=== PATIENT | female | born 1945 | race Caucasian/White ===

== ENCOUNTER → 2023-09-29 11:50 | Outpatient (REF) | payer MEDICARE, OTHER, SELFPAY ==
[2023-09-29 12:43] LABS: Urine Albumin Trace (Neg - Trace); Urine Bilirubin Negative (Negative); Urine Character Clear (Clear); Urine Color Yellow; Urine Glucose Negative (Negative); Urine Ketone Negative (Negative); Urine Leukocyte 2+ (Negative); Urine Nitrite Positive (Negative); Urine Occult Blood Negative (Negative); Urine Urobilinogen Negative (Neg - 1+)
[2023-09-29 12:52] LABS: Urine Bacteria Few (Negative); Urine Red Blood Cell 0-2 /HPF (0-2); Urine Squamous Cell 0-2 /LPF (Few); Urine White Cell 26-30 /HPF (0-5)
[2023-09-29 13:11] LABS: Albumin 4.1 g/dl (3.5-5.0); Blood Urea Nitrogen 41 mg/dl (7-17); Calcium 9.5 mg/dl (8.4-10.2); Carbon Dioxide 28 mmol/L (22-30); Chloride 102 mmol/L (98-107); Glucose 96 mg/dl (70-99); Phosphorus 4.1 mg/dl (2.5-4.5); Potassium 4.5 mmol/L (3.5-5.1); Sodium 132 mmol/L (135-145)
== END ==
LOC: REG 11:50
PROVIDERS: ATTENDING PHYSICIAN Internal Medicine; FAMILY PHYSICIAN Family Medicine
DX: N18.32 Chronic kidney disease, stage 3b (principal); I10 Essential (primary) hypertension; R80.9 Proteinuria, unspecified
CPT/HCPCS: 36415; 80069; 81003; 81015

== ENCOUNTER → 2023-10-22 12:03 | Outpatient (REF) | payer MEDICARE, OTHER, SELFPAY ==
[2023-10-22 13:29] LABS: Osmolality Urine 447 mOsm/kg (300-900)
[2023-10-22 13:59] LABS: Urine Sodium 25 mmol/L (30-90)
[2023-10-22 14:33] LABS: Albumin 4.1 g/dl (3.5-5.0); Blood Urea Nitrogen 30 mg/dl (7-17); Calcium 9.4 mg/dl (8.4-10.2); Carbon Dioxide 28 mmol/L (22-30); Chloride 102 mmol/L (98-107); Glucose 85 mg/dl (70-99); Potassium 4.6 mmol/L (3.5-5.1); Sodium 134 mmol/L (135-145); eGFR 20.29
[2023-10-22 14:59] LABS: TSH 1.89 uIU/ml (0.47-4.68)
== END ==
LOC: REG 12:03
PROVIDERS: ATTENDING PHYSICIAN Internal Medicine
DX: D64.9 Anemia, unspecified (principal); I10 Essential (primary) hypertension; N17.9 Acute kidney failure, unspecified; R80.9 Proteinuria, unspecified
CPT/HCPCS: 36415; 80069; 83935; 84300; 84443

== ENCOUNTER → 2023-11-13 09:19 | Outpatient (REF) | payer MEDICARE, OTHER, SELFPAY ==
[2023-11-13 10:37] LABS: Albumin 4.2 g/dl (3.5-5.0); Blood Urea Nitrogen 37 mg/dl (7-17); Calcium 9.4 mg/dl (8.4-10.2); Carbon Dioxide 27 mmol/L (22-30); Chloride 100 mmol/L (98-107); Glucose 96 mg/dl (70-99); Phosphorus 4.4 mg/dl (2.5-4.5); Potassium 4.5 mmol/L (3.5-5.1); Sodium 134 mmol/L (135-145); eGFR 22.53
[2023-11-14 23:42] LABS: Myeloperoxidase Antibody 0 AU/mL (0-19); Serine Protease-3, IgG 0 AU/mL (0-19)
[2023-11-15 02:10] LABS: ANA, IgG Reflex to HEp-2 None Detected (None Detected)
[2023-11-16 01:34] LABS: Complement C3 90 mg/dl (88-165)
== END ==
LOC: REG 09:19
PROVIDERS: ATTENDING PHYSICIAN Internal Medicine; FAMILY PHYSICIAN Family Medicine
DX: D64.9 Anemia, unspecified (principal); I10 Essential (primary) hypertension; N17.9 Acute kidney failure, unspecified; R80.9 Proteinuria, unspecified
CPT/HCPCS: 36415; 80069; 83516; 86038; 86160

== ENCOUNTER 2023-11-28 08:31 | Emergency (ER) | payer MEDICARE, OTHER, SELFPAY ==
[2023-11-28] VITALS (8 sets, daily range): BP systolic 108–156; BP diastolic 55–126; BMI 17.5
--- NOTE | 2023-11-28 08:46 | ED.GENMED ---
History of Present Illness
General
Chief Complaint: Weakness
Time Seen by Provider: 11/28/23 08:33
Travel History
Have you had any contact with someone who has COVID-19?: No
Do you have any symptoms of coronavirus? Fever > 100 degrees, chills, cough, shortness of breath, sore throat, loss of taste or smell, muscle aches, or headache?: No
History of Present Illness
History of Present Illness:
Patient is a 77-year-old male with past medical history of endometrial cancer, lymphedema in the right lower extremity, osteoarthritis, GERD, depression, and history of CKD, who currently lives at home alone, here today for evaluation of generalized
weakness/fatigue over the past 2 months. She reports intermittent episodes with a worsening episode this morning when she woke up. She denies falls or injuries. No head trauma. She also endorses a mild headache, dysuria, increased urinary
frequency/urinary urgency, and a mild amount of diarrhea. No fevers. No cough or sore throat. No vomiting. No chest pain or difficulty breathing. No abdominal pain. Patient denies focal weakness. No alcohol or drug use. Patient contacted EMS
today secondary to her weakness.
Past History
Past History
ED Past Medical History: Cancer (Uterine CA), GERD, Psychiatric (Depression) and Other (Right lower extremity lymphedema, Restless leg syndrome. Hiatal hernia, Anemia, Degenerative scoliosis)
ED Past Surgical History: Gynecological (Hysterectomy for uterine CA 1999), Orthopedic (Right and left total hip replacement) and Other (Facelift)
Social History
Tobacco: Non-smoker
Alcohol: None
Drug: None
Personal: ( 2016 of [place]. She has large property with animals and feels it's 'too much.')
Living: alone
Employment: Retired
Review of Systems
Review of Systems
All Other Systems: ROS reviewed and negative except as documented in HPI and ROS
Phy Exam
Physical Exam
Physical Exam:
GENERAL: Alert , in no apparent distress
EYE: pupils equal and reactive
NECK: Supple, no significant adenopathy.
ENT: o/p clr, mmm.
CARDIAC: Regular rate and rhythm .
LUNGS: Clear breath sounds bilaterally, no acute respiratory distress, no wheezes/rales/rhonchi
ABDOMEN: Soft, without focal tenderness, no r/g, no cvat
NEUROLOGICAL: Alert and oriented, no focal neuro deficits, cranial nerves 2 through 12 intact, moving all extremities, normal sensation/motor, cerebellar function intact throughout
SKIN: Warm and dry, skin intact.
MUSCULOSKELETAL: Nontender edema to RLE consistent with history of lymphedema, well perfused.
PSYCH: Normal and appropriate interaction.
Course
Orders/Labs/Results
Orders:
Orders
11/28/23 08:54
Electrocardiogram (*1) Urgent
Reason for Study: Other
Other Reason for Exam: weakness
CT Head W/o Iv Contrast Urgent
Comment:
Reason For Exam: headache
EKG- Treatment ONCE
11/28/23 09:05
Complete Blood Count/With Diff Urgent
Comprehensive Metabolic Panel Urgent
Magnesium Urgent
Phosphorus Urgent
11/28/23 12:27
Urinalysis Reflex To Culture Urgent
Date Specimen was Collected: 11/28/23
Time Specimen was Collected: 08:59
Urine Microscopic Reflex Cult Urgent
Urine Culture Urgent
HUBERT Source: U
Specimen Description:
Date Specimen was Collected: 11/28/23
Time Specimen was Collected: 08:59
11/28/23 13:11
CefTRIAXone [Rocephin] 1,000 mg IV NOW STA
Abnormal Lab Results
11/28/23 11/28/23
09:05 12:27
WBC 13.8 H 10^3/uL
(4.8-10.8)
RBC 4.03 L 10^6/uL
(4.20-5.40)
Hgb 11.9 L g/dL
(12.0-16.0)
MCHC 31.8 L g/dL
(33.0-37.0)
Plt Count 449 H 10^3/uL
(130-400)
Abs Immat Gran (auto) 0.1 H 10^3/uL
(0-0.05)
Absolute Neuts (auto) 7.6 H 10^3/uL
(1.4-6.5)
Absolute Lymphs (auto) 5.0 H 10^3/uL
(1.2-3.4)
Absolute Monos (auto) 0.9 H 10^3/uL
(0.1-0.6)
Immature Gran % 0.6 H %
(0-0.5)
BUN 32 H mg/dl
(7-17)
Creatinine 2.1 H mg/dL
(0.6-1.0)
Glucose 157 H mg/dl
(70-99)
Urine Ketones Trace A
(Negative)
Ur Occult Blood Reflex 1+ A
(Negative)
Leukocyte Esterase Rfl 2+ A
(Negative)
Urine RBC 7-10 A /HPF
(0-2)
Urine WBC (Reflex) >100 A /HPF
(0-5)
Urine Bacteria (Reflex) Moderate A
(Negative)
11/28/23 09:05
11/28/23 09:05
Vital Signs
Initial and Last Documented VS:
Initial Vital Signs
Temp Pulse Resp BP Pulse Ox
97.9 F 74 15 108/64 95
11/28/23 08:36 11/28/23 08:36 11/28/23 08:36 11/28/23 08:36 11/28/23 08:36
Last Documented Vital Signs
Temp Pulse Resp BP Pulse Ox
97.9 F 66 16 134/69 100
11/28/23 08:36 11/28/23 11:30 11/28/23 11:30 11/28/23 11:00 11/28/23 11:30
MDM/Problems Addressed
Differential Diagnosis Includes:
Patient is a 77-year-old male with past medical history of endometrial cancer, lymphedema in the right lower extremity, osteoarthritis, GERD, depression, and history of CKD, who currently lives at home alone, here today for evaluation of generalized
weakness over the past 2 months with worsening symptoms this morning. Overall, patient appears well. She is neurologically intact without acute focal deficits appreciated. Will place on diagnostic cardiac sonographer. Will obtain EKG. Will obtain labs and
urinalysis. Will obtain CT brain given headache and weakness.
11/28/2023 11:14: Screening labs reveal a leukocytosis to 13.8. Hemoglobin 11.9. BUN 32/creatinine 2.1 which is grossly consistent with the patient's baseline. EKG nonischemic. There is evidence of marked sinus arrhythmia. Head CT reveals no
acute findings. There is moderate to severe diffuse leukoaraiosis. Pending urinalysis.
11/28/2023 13:01: Urinalysis concerning for infection. Patient reassessed. She reports improvement of symptoms overall. She is able to ambulate appropriately. She appears steady on her feet and does not exhibit signs of weakness. We will treat
patient for a complicated urinary tract infection (given fatigue) with ceftriaxone 1 gram IV followed by PO cefpodoxime 200 mg bid x 7 days. Discussed treatment options with patient including observation in the hospital versus discharge. Shared
decision-making was used. Patient would prefer to be discharged and does not want to be admitted. She feels safe and steady on her feet. She is recommended to follow-up closely with her doctor. We will send antibiotics to the pharmacy. Return
precautions given for worsening symptoms. All questions answered. Stable for discharge
*Critical Care Note
Total Time (30-74mins, 75-104mins- exclusive of procedures): Not Applicable
ED Attending Note
-
Portions of this chart may have been created with voice recognition software.� Occasional wrong word or��sound alike� substitutions may have occurred due to the inherent limitations of voice recognition software.
Discharge Plan
Departure
Patient Disposition: Home (Routine Discharge)
Date of Disposition: 11/28/23
Time of Disposition: 13:04
Patient with high blood pressure during this ER visit?: No
Condition: Good
Covid-19: Not Applicable
Discharge Problem:
Acute lower urinary tract infection, Fatigue
Instructions: Generalized Weakness (DC), Urinary Tract Infection, Adult ED
Prescriptions:
New
cefpodoxime 200 mg tablet
200 mg PO Q12H 10 Days Qty: 20 0RF
No Action
venlafaxine [Effexor XR] 150 MG capsule,extended release 24hr
300 mg PO DAILY
metoprolol succinate 25 mg tablet extended release 24 hr
25 mg PO DAILY
cholecalciferol (vitamin D3) 25 mcg (1,000 unit) Tablet
1,000 unit PO DAILY
Neuriva Original 50-50 mg Tablet,Chewable
1 cap PO DAILY
cefdinir 300 mg capsule
300 mg PO BID Qty: 6 0RF
Rx Instructions:
starting 07/05
Referrals:
Josesito Darden MD [Family Provider] -
Activity Restrictions/Additional Instructions:
You were seen today for evaluation.
Your workup reveals an elevated white blood cell count of 13.8 and mild anemia with a hemoglobin of 11.9.
Your creatinine (kidney function level) is elevated but consistent with your baseline.
Your urine appears infected.
We are starting you on antibiotics with a medication called cefpodoxime to take as directed.
Rest. Drink plenty of fluids. Follow-up closely with your family doctor.
Return for any new, worsening, or concerning symptoms
Interventions
Interventions:
*Risk Screen - Suicide Last Done: 11/28/23 08:36
*General Assessment Last Done: 11/28/23 08:36
*Neglect/Abuse Screening Last Done: 11/28/23 08:36
*ED COVID-19 Vaccine History Last Done: 11/28/23 08:36
ED- Cardiac Assessment Last Done: 11/28/23 08:36
ED- Neurological Assessment Last Done: 11/28/23 08:36
ED- Pulmonary Assessment Last Done: 11/28/23 08:36
Discharge Date and Time
Print Language: ECUADOREAN
[2023-11-28 09:13] LABS: % Basophils 0.8 % (0-2); % Eosinophils 1.1 % (0-6); % Immature Granulocytes 0.6 % (0-0.5); % Lymphocytes 36.4 % (20.5-51.1); % Monocytes 6.2 % (1.7-9.3); % Neutrophils 54.9 % (42.2-75.2); Absolute Basophils 0.1 10^3/uL (0-0.2); Absolute Eosinophils 0.2 10^3/uL (0-0.7); Absolute Immature Granulocytes 0.1 10^3/uL (0-0.05); Absolute Monocytes 0.9 10^3/uL (0.1-0.6); Absolute Neutrophils 7.6 10^3/uL (1.4-6.5); Hematocrit 37.4 % (37.0-47.0); Hemoglobin 11.9 g/dL (12.0-16.0); Mean Corp Hgb Conc. 31.8 g/dL (33.0-37.0); Mean Corpuscular Hgb 29.5 pg (27.0-31.0); Mean Corpuscular Volume 92.8 fL (81.0-99.0); Nucleated Red Blood Cells % 0 %; Platelet Count 449 10^3/uL (130-400); Red Blood Cell Count 4.03 10^6/uL (4.20-5.40); Red Cell Dist. Width 13.2 % (11.5-14.5); White Blood Cell Count 13.8 10^3/uL (4.8-10.8)
[2023-11-28 09:29] LABS: ALT (SGPT) 16 U/L (0-35); AST (SGOT) 30 U/L (14-36); Albumin 4.2 g/dl (3.5-5.0); Alkaline Phosphatase 93 U/L (38-126); Blood Urea Nitrogen 32 mg/dl (7-17); Calcium 9.9 mg/dl (8.4-10.2); Carbon Dioxide 26 mmol/L (22-30); Chloride 106 mmol/L (98-107); Estimated Creatinine Clearance 16 ml/min; Glucose 157 mg/dl (70-99); Magnesium 2.1 mg/dl (1.6-2.3); Phosphorus 4.3 mg/dl (2.5-4.5); Potassium 4.3 mmol/L (3.5-5.1); Sodium 139 mmol/L (135-145); Total Bilirubin 0.6 mg/dl (0.2-1.3); eGFR 23.82
[2023-11-28 12:38] LABS: Urine Albumin Trace (Neg - Trace); Urine Bilirubin Negative (Negative); Urine Character Slightly Cloudy (Clear); Urine Color Yellow; Urine Glucose Negative (Negative); Urine Ketone Trace (Negative); Urine Leukocyte 2+ (Negative); Urine Nitrite Negative (Negative); Urine Occult Blood 1+ (Negative); Urine Urobilinogen Negative (Neg - 1+)
[2023-11-28 13:02] LABS: Urine Squamous Cell 0-2 /LPF (Few)
[2023-11-28 13:03] LABS: Urine Bacteria Moderate (Negative); Urine White Cell >100 /HPF (0-5)
[2023-11-28] MEDS: ROCEPHIN 1000 MG IV (13:19)
== END 2023-11-28 13:49 | disposition home or self-care (01) ==
LOC: EMR 08:31
PROVIDERS: Physician Assistant; EMERGENCY PHYSICIAN Emergency Medicine; FAMILY PHYSICIAN Family Medicine
DX: N39.0 Urinary tract infection, site not specified (principal); R53.83 Other fatigue; R53.1 Weakness; R51.9 Headache, unspecified; M19.90 Unspecified osteoarthritis, unspecified site; K21.9 Gastro-esophageal reflux disease without esophagitis; F32.A Depression, unspecified; N18.9 Chronic kidney disease, unspecified; G25.81 Restless legs syndrome; K44.9 Diaphragmatic hernia without obstruction or gangrene; M41.50 Other secondary scoliosis, site unspecified; Z85.42 Personal history of malignant neoplasm of other parts of uterus; Z96.642 Presence of left artificial hip joint
CPT/HCPCS: 99284; 96374; 70450; 80053; 81003; 81015; 83735; 84100; 85025; 87077; 87086; 87186; 93005

== ENCOUNTER → 2023-12-14 14:34 | Outpatient (REF) | payer MEDICARE, OTHER, SELFPAY ==
[2023-12-14 17:24] LABS: Hematocrit 32.2 % (37.0-47.0); Hemoglobin 10.4 g/dL (12.0-16.0); Mean Corp Hgb Conc. 32.3 g/dL (33.0-37.0); Mean Corpuscular Hgb 29.5 pg (27.0-31.0); Mean Corpuscular Volume 91.2 fL (81.0-99.0); Mean Platelet Volume 11.4 fL (7.4-10.4); Platelet Count 394 10^3/uL (130-400); Red Blood Cell Count 3.53 10^6/uL (4.20-5.40); Red Cell Dist. Width 13.5 % (11.5-14.5)
[2023-12-14 17:39] LABS: Albumin 4.1 g/dl (3.5-5.0); Blood Urea Nitrogen 40 mg/dl (7-17); Calcium 9.1 mg/dl (8.4-10.2); Carbon Dioxide 25 mmol/L (22-30); Chloride 106 mmol/L (98-107); Glucose 78 mg/dl (70-99); Phosphorus 3.9 mg/dl (2.5-4.5); Potassium 4.7 mmol/L (3.5-5.1); Sodium 136 mmol/L (135-145); eGFR 26.86
== END ==
LOC: REG 14:34
PROVIDERS: ATTENDING PHYSICIAN Internal Medicine; FAMILY PHYSICIAN Family Medicine
DX: N17.9 Acute kidney failure, unspecified (principal)
CPT/HCPCS: 36415; 80069; 85027

== ENCOUNTER → 2023-12-24 12:48 | Outpatient (REF) | payer MEDICARE, OTHER, SELFPAY ==
[2023-12-24 13:59] LABS: Glycohemoglobin (HgbA1c) 6.1 % (4.0-5.6)
[2023-12-24 14:14] LABS: HDL Cholesterol 94 mg/dl; LDL Cholesterol, Calculated 91 mg/dl; Total Cholesterol 206 mg/dl (50-199); Triglyceride 108 mg/dl (10-149); Very Low Density Lipoprotein 21 mg/dl (0-30)
[2023-12-24 14:57] LABS: Urine Albumin Trace (Neg - Trace); Urine Bilirubin Negative (Negative); Urine Character Clear (Clear); Urine Color Yellow; Urine Glucose Negative (Negative); Urine Ketone Negative (Negative); Urine Leukocyte Trace (Negative); Urine Nitrite Negative (Negative); Urine Occult Blood Negative (Negative); Urine Specific Gravity 1.015 (<1.030); Urine Urobilinogen Negative (Neg - 1+)
[2023-12-24 15:24] LABS: Urine Squamous Cell 0-2 /LPF (Few)
[2023-12-24 15:25] LABS: Urine Red Blood Cell 0-2 /HPF (0-2)
== END ==
LOC: REG 12:48
PROVIDERS: ATTENDING PHYSICIAN Internal Medicine; FAMILY PHYSICIAN Family Medicine
DX: R73.03 Prediabetes (principal); E78.2 Mixed hyperlipidemia; Z87.440 Personal history of urinary (tract) infections; R80.9 Proteinuria, unspecified
CPT/HCPCS: 36415; 80061; 81003; 81015; 83036; 87086

== ENCOUNTER → 2023-12-28 11:26 | Outpatient (REF) | payer MEDICARE, OTHER, SELFPAY | LOC: HWRAD 11:26 | PROVIDERS: ATTENDING PHYSICIAN Internal Medicine; FAMILY PHYSICIAN Family Medicine | DX: D64.9 Anemia, unspecified (principal); I10 Essential (primary) hypertension; N17.9 Acute kidney failure, unspecified; R80.9 Proteinuria, unspecified | CPT/HCPCS: 76770 ==

== ENCOUNTER → 2024-02-23 08:46 | Outpatient (REF) | payer MEDICARE, OTHER, SELFPAY | LOC: RAD 08:46 | PROVIDERS: ATTENDING PHYSICIAN Internal Medicine; FAMILY PHYSICIAN Family Medicine | DX: N17.9 Acute kidney failure, unspecified (principal) | CPT/HCPCS: 93975 ==

== ENCOUNTER → 2024-03-05 10:02 | Outpatient (REF) | payer MEDICARE, OTHER, SELFPAY ==
[2024-03-05 10:57] LABS: Urine Protein 18 mg/dl (0-12)
[2024-03-05 11:02] LABS: % Basophils 0.5 % (0-2); % Eosinophils 0.8 % (0-6); % Immature Granulocytes 0.6 % (0-0.5); % Lymphocytes 29.7 % (20.5-51.1); % Monocytes 6.8 % (1.7-9.3); % Neutrophils 61.6 % (42.2-75.2); Absolute Eosinophils 0.1 10^3/uL (0-0.7); Absolute Immature Granulocytes 0.1 10^3/uL (0-0.05); Absolute Lymphocytes 2.5 10^3/uL (1.2-3.4); Absolute Monocytes 0.6 10^3/uL (0.1-0.6); Absolute Neutrophils 5.2 10^3/uL (1.4-6.5); Hematocrit 33.7 % (37.0-47.0); Mean Corp Hgb Conc. 32.6 g/dL (33.0-37.0); Mean Corpuscular Hgb 30.4 pg (27.0-31.0); Mean Corpuscular Volume 93.1 fL (81.0-99.0); Mean Platelet Volume 10.4 fL (7.4-10.4); Nucleated Red Blood Cells % 0 %; Platelet Count 365 10^3/uL (130-400); Red Blood Cell Count 3.62 10^6/uL (4.20-5.40); Red Cell Dist. Width 12.9 % (11.5-14.5); Reticulocyte Count 1.1 % (0.4-2.8); White Blood Cell Count 8.5 10^3/uL (4.8-10.8)
[2024-03-05 11:14] LABS: Albumin 4.4 g/dl (3.5-5.0); Blood Urea Nitrogen 39 mg/dl (7-17); Calcium 9.7 mg/dl (8.4-10.2); Carbon Dioxide 27 mmol/L (22-30); Chloride 100 mmol/L (98-107); Glucose 92 mg/dl (70-99); Iron 55 ug/dl (37-170); Phosphorus 3.5 mg/dl (2.5-4.5); Potassium 4.1 mmol/L (3.5-5.1); Sodium 137 mmol/L (135-145); eGFR 23.67
[2024-03-05 11:23] LABS: Percent Saturation 16 % (20-50); Total Iron Binding Capacity 334 ug/dl (265-497)
[2024-03-05 11:28] LABS: Intact PTH 158.1 pg/ml (13.6-85.8)
[2024-03-05 11:30] LABS: Vitamin D, 25-OH*** 49.7 ng/mL (30-80)
[2024-03-05 11:47] LABS: Ferritin 39.7 ng/ml (11.1-264.0)
[2024-03-05 12:19] LABS: Folate > 20.0 ng/ml (2.76-20); Vitamin B12 363 pg/ml (239-931)
== END ==
LOC: REG 10:02
PROVIDERS: ATTENDING PHYSICIAN Internal Medicine; FAMILY PHYSICIAN Family Medicine
DX: N17.9 Acute kidney failure, unspecified (principal); N25.81 Secondary hyperparathyroidism of renal origin; D64.9 Anemia, unspecified
CPT/HCPCS: 36415; 80069; 82306; 82570; 82607; 82728; 82746; 83540; 83550; 83970; 84156; 85025; 85045

== ENCOUNTER → 2024-08-15 11:58 | Outpatient (REF) | payer MEDICARE, OTHER, SELFPAY ==
[2024-08-15 12:59] LABS: % Basophils 0.8 % (0-2); % Eosinophils 1.1 % (0-6); % Immature Granulocytes 0.4 % (0-0.5); % Lymphocytes 32.3 % (20.5-51.1); % Monocytes 6.9 % (1.7-9.3); % Neutrophils 58.5 % (42.2-75.2); Absolute Basophils 0.1 10^3/uL (0-0.2); Absolute Eosinophils 0.1 10^3/uL (0-0.7); Absolute Lymphocytes 2.5 10^3/uL (1.2-3.4); Absolute Monocytes 0.5 10^3/uL (0.1-0.6); Absolute Neutrophils 4.6 10^3/uL (1.4-6.5); Hematocrit 34.9 % (37.0-47.0); Hemoglobin 11.2 g/dL (12.0-16.0); Mean Corp Hgb Conc. 32.1 g/dL (33.0-37.0); Mean Corpuscular Hgb 30.1 pg (27.0-31.0); Mean Corpuscular Volume 93.8 fL (81.0-99.0); Mean Platelet Volume 10.4 fL (7.4-10.4); Nucleated Red Blood Cells % 0 %; Platelet Count 398 10^3/uL (130-400); Red Blood Cell Count 3.72 10^6/uL (4.20-5.40); Red Cell Dist. Width 13.2 % (11.5-14.5); Reticulocyte Count 1.5 % (0.4-2.8); White Blood Cell Count 7.8 10^3/uL (4.8-10.8)
[2024-08-15 13:26] LABS: Albumin 4.3 g/dl (3.5-5.0); Blood Urea Nitrogen 31 mg/dl (7-17); Calcium 9.9 mg/dl (8.4-10.2); Carbon Dioxide 30 mmol/L (22-30); Chloride 100 mmol/L (98-107); Glucose 107 mg/dl (70-99); Iron 96 ug/dl (37-170); Potassium 4.9 mmol/L (3.5-5.1); Sodium 137 mmol/L (135-145); eGFR 26.69
[2024-08-15 13:29] LABS: Urine Albumin Trace (Neg - Trace); Urine Bilirubin Negative (Negative); Urine Glucose Negative (Negative); Urine Ketone Negative (Negative); Urine Leukocyte 1+ (Negative); Urine Nitrite Negative (Negative); Urine Occult Blood Negative (Negative); Urine Urobilinogen Negative (Neg - 1+)
[2024-08-15 13:30] LABS: Urine Character Clear (Clear); Urine Color Yellow
[2024-08-15 13:36] LABS: Percent Saturation 30 % (20-50); Total Iron Binding Capacity 312 ug/dl (265-497)
[2024-08-15 13:38] LABS: Urine Protein 24 mg/dl (0-12)
[2024-08-15 13:41] LABS: Vitamin D, 25-OH*** 53.1 ng/mL (30-80)
[2024-08-15 13:59] LABS: Ferritin 50.9 ng/ml (11.1-264.0)
[2024-08-15 14:24] LABS: Urine Bacteria Few (Negative); Urine Red Blood Cell 0-2 /HPF (0-2); Urine Squamous Cell 0-2 /LPF (Few); Urine White Cell 26-30 /HPF (0-5)
[2024-08-15 14:31] LABS: Folate 17.6 ng/ml (2.76-20); Vitamin B12 > 1000 pg/ml (239-931)
== END ==
LOC: REG 11:58
PROVIDERS: ATTENDING PHYSICIAN Internal Medicine; FAMILY PHYSICIAN Nurse Practitioner
DX: N17.9 Acute kidney failure, unspecified (principal); N25.81 Secondary hyperparathyroidism of renal origin; D64.9 Anemia, unspecified; Z87.440 Personal history of urinary (tract) infections; N39.0 Urinary tract infection, site not specified; Z79.899 Other long term (current) drug therapy
CPT/HCPCS: 36415; 80069; 81003; 81015; 82306; 82570; 82607; 82728; 82746; 83540; 83550; 83970; 84156; 85025; 85045; 87077; 87086; 87186

== ENCOUNTER 2024-08-25 13:46 | Emergency (ER) | payer MEDICARE, OTHER, SELFPAY ==
[2024-08-25 14:06] VITALS: BP 125/78
[2024-08-25 14:32] LABS: % Basophils 0.4 % (0-2); % Eosinophils 0.4 % (0-6); % Immature Granulocytes 0.8 % (0-0.5); % Lymphocytes 20.4 % (20.5-51.1); % Monocytes 6.2 % (1.7-9.3); % Neutrophils 71.8 % (42.2-75.2); Absolute Immature Granulocytes 0.1 10^3/uL (0-0.05); Absolute Lymphocytes 1.5 10^3/uL (1.2-3.4); Absolute Monocytes 0.5 10^3/uL (0.1-0.6); Absolute Neutrophils 5.2 10^3/uL (1.4-6.5); Hematocrit 34.8 % (37.0-47.0); Hemoglobin 11.2 g/dL (12.0-16.0); Mean Corp Hgb Conc. 32.2 g/dL (33.0-37.0); Mean Corpuscular Hgb 29.6 pg (27.0-31.0); Mean Corpuscular Volume 92.1 fL (81.0-99.0); Mean Platelet Volume 9.4 fL (7.4-10.4); Nucleated Red Blood Cells % 0 %; Platelet Count 389 10^3/uL (130-400); Red Blood Cell Count 3.78 10^6/uL (4.20-5.40); White Blood Cell Count 7.2 10^3/uL (4.8-10.8)
[2024-08-25 14:54] LABS: ALT (SGPT) 16 U/L (0-35); AST (SGOT) 31 U/L (14-36); Albumin 4.4 g/dl (3.5-5.0); Alkaline Phosphatase 92 U/L (38-126); Blood Urea Nitrogen 41 mg/dl (7-17); Calcium 9.7 mg/dl (8.4-10.2); Carbon Dioxide 24 mmol/L (22-30); Chloride 99 mmol/L (98-107); Glucose 121 mg/dl (70-99); Potassium 4.9 mmol/L (3.5-5.1); Sodium 134 mmol/L (135-145); Total Bilirubin 0.5 mg/dl (0.2-1.3); eGFR 22.39
[2024-08-25 17:03] VITALS: BP 159/66
--- NOTE | 2024-08-25 17:11 | ED.GENMED ---
History of Present Illness
General
Chief Complaint: Weakness
Source: patient
Exam Limitations: none
Time Seen by Provider: 08/25/24 17:00
History of Present Illness
History of Present Illness:
See MDM
Past History
Past History
ED Past Medical History: Cancer (Uterine CA), GERD, Psychiatric (Depression) and Other (Right lower extremity lymphedema, Restless leg syndrome. Hiatal hernia, Anemia, Degenerative scoliosis)
ED Past Surgical History: Gynecological (Hysterectomy for uterine CA 1999), Orthopedic (Right and left total hip replacement) and Other (Facelift)
Social History
Tobacco: Non-smoker
Alcohol: None
Drug: None
Personal: ( 2016 of [place]. She has large property with animals and feels it's 'too much.')
Living: alone
Employment: Retired
Phy Exam
Physical Exam
Physical Exam:
See MDM
Course
Orders/Labs/Results
Orders:
Orders
08/25/24 14:07
Electrocardiogram (*1) Urgent
Reason for Study: Fatigue / Weakness
EKG- Treatment ONCE
08/25/24 14:16
Complete Blood Count/With Diff Urgent
Comprehensive Metabolic Panel Urgent
08/25/24 17:10
CT Head W/o Iv Contrast Urgent
Comment:
Reason For Exam: dizzy, headache, off balance
0.9% Sodium Chloride 1000 ml [Nss] 1,000 ml IV BOLUS
Abnormal Lab Results
08/25/24
14:16
RBC 3.78 L 10^6/uL
(4.20-5.40)
Hgb 11.2 L g/dL
(12.0-16.0)
Hct 34.8 L %
(37.0-47.0)
MCHC 32.2 L g/dL
(33.0-37.0)
Abs Immat Gran (auto) 0.1 H 10^3/uL
(0-0.05)
Immature Gran % 0.8 H %
(0-0.5)
Lymphocytes % 20.4 L %
(20.5-51.1)
Sodium 134 L mmol/L
(135-145)
BUN 41 H mg/dl
(7-17)
Creatinine 2.2 H mg/dL
(0.6-1.0)
Glucose 121 H mg/dl
(70-99)
08/25/24 14:16
08/25/24 14:16
Vital Signs
Initial and Last Documented VS:
Initial Vital Signs
Temp Pulse Resp BP Pulse Ox
98.0 F 87 16 125/78 98
08/25/24 14:06 08/25/24 14:06 08/25/24 14:06 08/25/24 14:06 08/25/24 14:06
Last Documented Vital Signs
Temp Pulse Resp BP Pulse Ox
97.6 F 75 16 162/76 100
08/25/24 17:03 08/25/24 19:00 08/25/24 19:00 08/25/24 17:21 08/25/24 19:00
MDM/Problems Addressed
Differential Diagnosis Includes:
HPI and MDM Narrative:
78-year-old female presenting for dizziness and fatigue. She states this has been ongoing for the past 3 days. She states she feels off balance and then she develops shortness of breath when she walks. She believes this could be related to her
recent medication change where her metoprolol was switched to losartan by her new PCP
Patient denies vertiginous symptoms. She does appear dry but believes she is drinking enough water. Blood work was done prior to my assessment and her BUN and creatinine are elevated from baseline. Will give IV fluids and reassess.
She has normal finger-nose bilaterally and negative Romberg sign and negative [place]-Hallpike.
I had the patient ambulate in the room and no symptoms were reproduced. Patient does acknowledge that she is feeling somewhat better
Physical exam
General: Well appearing and non-toxic
HEENT: protecting airway. Dry mucous membranes. EOMI.
Neck: supple
CV: No evidence of cyanosis. Regular rate and rhythm
Resp: No accessory muscle use
Abd: Non-distended
Extremities: No deformities
Neuro: alert. Normal finger-nose. Negative [place]-Hallpike. Negative Romberg sign
Psych: Normal affect
Skin: Intact
Problems Addressed including Acute and Chronic Conditions affecting care:
1. Dizziness
Acuity: acute
Prognosis: stable
Details: Potentially in the setting of orthostasis. Will give IV fluids and reassess. Given her multiple complaints, will obtain CT head
Updates
CT head negative. On reassessment, patient feeling much better. She is ambulating difficulty and feels comfortable going home
Differential Diagnosis (but not limited to): Adverse medication reaction, dehydration, orthostasis
Testing considered: Troponin but exertional symptoms not reproducible at bedside
Drug therapy (if applicable): OTC meds, please see d/c instruction regarding Rx drugs
Amount and/or Complexity of Data Reviewed
Clinical info obtained from: Patient
External data reviewed: N/A
Labs I independently reviewed (but not limited to): Elevated BUN and creatinine
Radiology: The CT scan was personally and independently reviewed. In addition, official CT report reviewed.
Pulse Ox: not hypoxic
EKG independently reviewed: Sinus rhythm, normal axis, no STEMI
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
Critical Care: N/A
Risk of Complication:
Social Determinants of health: Good social support
Discussed with other providers: N/A
Escalation of Care includes Admit/Obs: After being observed in the Emergency Department, pt stable for discharge.
Occasional wrong word or 'sound a like' substitutions may have occurred due to the inherent limitations of voice recognition software. Read the chart carefully and recognize, using context, where substitutions have occurred.
*Critical Care Note
Total Time (30-74mins, 75-104mins- exclusive of procedures): Not Applicable
ED Attending Note
-
Portions of this chart may have been created with voice recognition software.� Occasional wrong word or��sound alike� substitutions may have occurred due to the inherent limitations of voice recognition software.
Discharge Plan
Departure
Patient Disposition: Home (Routine Discharge)
Date of Disposition: 08/25/24
Time of Disposition: 21:09
Patient with high blood pressure during this ER visit?: No
Discharge Problem:
Orthostasis
Instructions: Dehydration in adults - ED discharge instructions
Prescriptions:
No Action
venlafaxine [Effexor XR] 150 MG capsule,extended release 24hr
300 mg PO DAILY
metoprolol succinate 25 mg tablet extended release 24 hr
25 mg PO DAILY
cholecalciferol (vitamin D3) 25 mcg (1,000 unit) Tablet
1,000 unit PO DAILY
Neuriva Original 50-50 mg Tablet,Chewable
1 cap PO DAILY
cefdinir 300 mg capsule
300 mg PO BID Qty: 6 0RF
Rx Instructions:
starting 07/05
cefpodoxime 200 mg tablet
200 mg PO Q12H 10 Days Qty: 20 0RF
Referrals:
Marie Cervantes CRNP [Family Provider] -
Activity Restrictions/Additional Instructions:
Please return for any worsening symptoms.
You may return at any time if you have further concerns.
Please follow up with your doctor at the first available appointment, preferably this week.
Thank you for choosing [facility].
Interventions
Interventions:
*Risk Screen - Suicide Last Done: 08/25/24 14:06
*General Assessment Last Done: 08/25/24 18:29
*Neglect/Abuse Screening Last Done: 08/25/24 14:06
ED- Fall Risk Assessment Last Done: 08/25/24 18:01
*ED COVID-19 Vaccine History Last Done: 08/25/24 18:29
ED- Cardiac Assessment Last Done: 08/25/24 18:01
ED- Neurological Assessment Last Done: 08/25/24 18:01
ED- Pulmonary Assessment Last Done: 08/25/24 18:01
Discharge Date and Time
Print Language: OCCITAN
[2024-08-25 17:21] VITALS: BP 162/76
[2024-08-25] MEDS: NSS 1000 IV (17:34)
== END 2024-08-25 21:34 | disposition home or self-care (01) ==
LOC: EMR 13:46
PROVIDERS: Emergency Medicine; EMERGENCY PHYSICIAN Student in an Organized Health Care Education/Training Program; FAMILY PHYSICIAN Nurse Practitioner
DX: R53.1 Weakness (principal); K21.9 Gastro-esophageal reflux disease without esophagitis; F32.A Depression, unspecified; G25.81 Restless legs syndrome; K44.9 Diaphragmatic hernia without obstruction or gangrene; Z85.42 Personal history of malignant neoplasm of other parts of uterus; Z90.710 Acquired absence of both cervix and uterus
CPT/HCPCS: 99284; 96360; 96361; 70450; 80053; 85025; 93005

== ENCOUNTER → 2024-12-23 09:39 | Outpatient (REF) | payer MEDICARE, OTHER, SELFPAY ==
[2024-12-23 10:42] LABS: % Basophils 0.7 % (0-2); % Eosinophils 1.5 % (0-6); % Immature Granulocytes 0.3 % (0-0.5); % Lymphocytes 33.9 % (20.5-51.1); % Monocytes 7.2 % (1.7-9.3); % Neutrophils 56.4 % (42.2-75.2); Absolute Basophils 0.1 10^3/uL (0-0.2); Absolute Eosinophils 0.1 10^3/uL (0-0.7); Absolute Lymphocytes 2.4 10^3/uL (1.2-3.4); Absolute Monocytes 0.5 10^3/uL (0.1-0.6); Hematocrit 30.7 % (37.0-47.0); Mean Corp Hgb Conc. 32.6 g/dL (33.0-37.0); Mean Corpuscular Hgb 30.1 pg (27.0-31.0); Mean Corpuscular Volume 92.5 fL (81.0-99.0); Mean Platelet Volume 10.6 fL (7.4-10.4); Nucleated Red Blood Cells % 0 %; Platelet Count 380 10^3/uL (130-400); Red Blood Cell Count 3.32 10^6/uL (4.20-5.40); Red Cell Dist. Width 13.3 % (11.5-14.5); White Blood Cell Count 7.1 10^3/uL (4.8-10.8)
[2024-12-23 16:28] LABS: ALT (SGPT) 22 U/L (0-35); AST (SGOT) 31 U/L (14-36); Albumin 4.4 g/dl (3.5-5.0); Alkaline Phosphatase 88 U/L (38-126); Blood Urea Nitrogen 57 mg/dl (7-17); Calcium 9.5 mg/dl (8.4-10.2); Carbon Dioxide 23 mmol/L (22-30); Chloride 105 mmol/L (98-107); Glucose 100 mg/dl (70-99); Iron 99 ug/dl (37-170); Potassium 5.7 mmol/L (3.5-5.1); Sodium 140 mmol/L (135-145); Total Bilirubin 0.5 mg/dl (0.2-1.3); Total Protein 6.7 g/dl (6.3-8.2); eGFR 26.53
[2024-12-23 17:32] LABS: Ferritin 54.7 ng/ml (11.1-264.0)
== END ==
LOC: REG 09:39
PROVIDERS: ATTENDING PHYSICIAN Nurse Practitioner
DX: I10 Essential (primary) hypertension (principal); N18.30 Chronic kidney disease, stage 3 unspecified; D64.9 Anemia, unspecified; R80.9 Proteinuria, unspecified
CPT/HCPCS: 36415; 80053; 82728; 83540; 85025

== ENCOUNTER → 2024-12-28 15:09 | Outpatient (REF) | payer MEDICARE, OTHER, SELFPAY ==
[2024-12-28 15:36] LABS: % Basophils 0.6 % (0-2); % Eosinophils 2.1 % (0-6); % Immature Granulocytes 0.4 % (0-0.5); % Lymphocytes 33.4 % (20.5-51.1); % Monocytes 9.2 % (1.7-9.3); % Neutrophils 54.3 % (42.2-75.2); Absolute Eosinophils 0.1 10^3/uL (0-0.7); Absolute Lymphocytes 2.2 10^3/uL (1.2-3.4); Absolute Monocytes 0.6 10^3/uL (0.1-0.6); Absolute Neutrophils 3.6 10^3/uL (1.4-6.5); Hematocrit 29.5 % (37.0-47.0); Hemoglobin 9.7 g/dL (12.0-16.0); Mean Corp Hgb Conc. 32.9 g/dL (33.0-37.0); Mean Corpuscular Hgb 30.5 pg (27.0-31.0); Mean Corpuscular Volume 92.8 fL (81.0-99.0); Mean Platelet Volume 10.2 fL (7.4-10.4); Nucleated Red Blood Cells % 0 %; Platelet Count 365 10^3/uL (130-400); Red Blood Cell Count 3.18 10^6/uL (4.20-5.40); Red Cell Dist. Width 13.2 % (11.5-14.5); White Blood Cell Count 6.7 10^3/uL (4.8-10.8)
[2024-12-28 15:48] LABS: ALT (SGPT) 20 U/L (0-35); AST (SGOT) 28 U/L (14-36); Albumin 3.9 g/dl (3.5-5.0); Alkaline Phosphatase 78 U/L (38-126); Blood Urea Nitrogen 55 mg/dl (7-17); Calcium 9.5 mg/dl (8.4-10.2); Carbon Dioxide 26 mmol/L (22-30); Chloride 106 mmol/L (98-107); Glucose 92 mg/dl (70-99); Potassium 5.4 mmol/L (3.5-5.1); Sodium 139 mmol/L (135-145); Total Bilirubin 0.4 mg/dl (0.2-1.3); Total Protein 6.5 g/dl (6.3-8.2); eGFR 26.53
== END ==
LOC: REG 15:09
PROVIDERS: ATTENDING PHYSICIAN Nurse Practitioner
DX: D64.9 Anemia, unspecified (principal); E87.1 Hypo-osmolality and hyponatremia
CPT/HCPCS: 36415; 80053; 85025

== ENCOUNTER → 2025-02-01 14:44 | Outpatient (REF) | payer MEDICARE, OTHER, SELFPAY ==
[2025-02-01 16:19] LABS: % Basophils 0.7 % (0-2); % Eosinophils 0.7 % (0-6); % Immature Granulocytes 0.4 % (0-0.5); % Lymphocytes 27.6 % (20.5-51.1); % Monocytes 6.9 % (1.7-9.3); % Neutrophils 63.7 % (42.2-75.2); Absolute Basophils 0.1 10^3/uL (0-0.2); Absolute Eosinophils 0.1 10^3/uL (0-0.7); Absolute Lymphocytes 2.3 10^3/uL (1.2-3.4); Absolute Monocytes 0.6 10^3/uL (0.1-0.6); Absolute Neutrophils 5.2 10^3/uL (1.4-6.5); Hematocrit 32.5 % (37.0-47.0); Hemoglobin 10.3 g/dL (12.0-16.0); Mean Corp Hgb Conc. 31.7 g/dL (33.0-37.0); Mean Corpuscular Hgb 29.7 pg (27.0-31.0); Mean Corpuscular Volume 93.7 fL (81.0-99.0); Mean Platelet Volume 10.7 fL (7.4-10.4); Nucleated Red Blood Cells % 0 %; Platelet Count 443 10^3/uL (130-400); Red Blood Cell Count 3.47 10^6/uL (4.20-5.40); Red Cell Dist. Width 13.3 % (11.5-14.5); White Blood Cell Count 8.2 10^3/uL (4.8-10.8)
[2025-02-01 16:43] LABS: ALT (SGPT) 55 U/L (0-35); AST (SGOT) 39 U/L (14-36); Albumin 4.2 g/dl (3.5-5.0); Alkaline Phosphatase 130 U/L (38-126); Blood Urea Nitrogen 43 mg/dl (7-17); Calcium 10.1 mg/dl (8.4-10.2); Carbon Dioxide 24 mmol/L (22-30); Chloride 108 mmol/L (98-107); Glucose 98 mg/dl (70-99); Iron 87 ug/dl (37-170); Potassium 5.7 mmol/L (3.5-5.1); Sodium 140 mmol/L (135-145); Total Bilirubin 0.6 mg/dl (0.2-1.3); eGFR 26.53
[2025-02-01 16:53] LABS: Percent Saturation 28 % (20-50); Total Iron Binding Capacity 309 ug/dl (265-497)
[2025-02-01 17:17] LABS: Ferritin 68.2 ng/ml (11.1-264.0)
== END ==
LOC: REG 14:44
PROVIDERS: ATTENDING PHYSICIAN Nurse Practitioner
DX: I10 Essential (primary) hypertension (principal); E87.5 Hyperkalemia; N18.30 Chronic kidney disease, stage 3 unspecified; D64.9 Anemia, unspecified
CPT/HCPCS: 36415; 80053; 82728; 83540; 83550; 85025

== ENCOUNTER → 2025-05-26 13:33 | Outpatient (REF) | payer MEDICARE, OTHER, SELFPAY ==
[2025-05-26 14:19] LABS: Hematocrit 34.7 % (37.0-47.0); Hemoglobin 11.1 g/dL (12.0-16.0); Mean Corp Hgb Conc. 32.0 g/dL (33.0-37.0); Mean Corpuscular Volume 94.0 fL (81.0-99.0); Nucleated Red Blood Cells % 0 %; Platelet Count 379 10^3/uL (130-400); Red Cell Dist. Width 13.4 % (11.5-14.5)
[2025-05-26 15:36] LABS: AST (SGOT) 31 U/L (14-36); Albumin 4.3 g/dl (3.5-5.0); Alkaline Phosphatase 84 U/L (38-126); Blood Urea Nitrogen 37 mg/dl (7-17); Calcium 9.6 mg/dl (8.4-10.2); Carbon Dioxide 27 mmol/L (22-30); Chloride 102 mmol/L (98-107); Glucose 96 mg/dl (70-99); HDL Cholesterol 108 mg/dl; Iron 76 ug/dl (37-170); LDL Cholesterol, Calculated 90 mg/dl; Sodium 136 mmol/L (135-145); Total Protein 7.0 g/dl (6.3-8.2); Very Low Density Lipoprotein 18 mg/dl (0-30); eGFR 24.94
[2025-05-26 15:47] LABS: ALT (SGPT) 23 U/L (0-35); Potassium 4.8 mmol/L (3.5-5.1)
[2025-05-26 15:50] LABS: Total Iron Binding Capacity 275 ug/dl (265-497)
[2025-05-26 16:07] LABS: TSH 2.26 uIU/ml (0.47-4.68)
[2025-05-26 16:11] LABS: Ferritin 74.3 ng/ml (11.1-264.0)
== END ==
LOC: REG 13:33
PROVIDERS: ATTENDING PHYSICIAN Internal Medicine; FAMILY PHYSICIAN Nurse Practitioner
DX: I10 Essential (primary) hypertension (principal); E87.5 Hyperkalemia; N18.4 Chronic kidney disease, stage 4 (severe); D64.9 Anemia, unspecified; R63.4 Abnormal weight loss; N25.81 Secondary hyperparathyroidism of renal origin; R39.9 Unspecified symptoms and signs involving the genitourinary system
CPT/HCPCS: 36415; 80053; 80061; 82570; 82728; 83540; 83550; 83970; 84100; 84156; 84443; 85025; 87077; 87086; 87186